=== PATIENT | female | born 2000 | race Caucasian/White ===

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

== ENCOUNTER → 2020-10-13 11:50 | Outpatient (CLI) | payer BC, SELFPAY ==
[2020-10-13 13:34] LABS: Add Manual Diff / Slide Review NO; Basophils Absolute Auto 0 /uL (0-100); Basophils Percent Auto 0.6 % (0-2); Eosinophils Absolute Auto 0 /uL (0-450); Eosinophils Percent Auto 0.7 % (2-4); Hematocrit 40.7 % (36-46); Hemoglobin 13.9 g/dL (12.0-16.0); Lymphocytes Absolute Auto 2100 /uL (1100-4500); Lymphocytes Percent Auto 31.7 % (25-40); Mean Corpuscular HGB Conc 34.1 % (30-36); Mean Corpuscular Hemoglobin 30.5 PG (26-34); Mean Corpuscular Volume 89.3 fL (80-100); Monocytes Absolute Auto 800 /uL (0-900); Monocytes Percent Auto 12.3 % (3-14); Neutrophils Absolute Auto 3500 /uL (1500-7000); Neutrophils Percent Auto 54.7 % (50-75); Platelet Count 345 X10^3/uL (150-400); Red Blood Cell Count 4.56 X10^6/uL (4.0-5.2); Red Cell Distribution Width 12.5 % (11.6-14.8); White Blood Cell Count 6.5 X10^3/uL (4.5-11.0)
[2020-10-13 13:39] LABS: Alanine Aminotransferase 15 IU/L (<35); Albumin 4.9 g/dL (3.5-5.0); Albumin Globulin Ratio 1.4 (1.0-2.8); Alkaline Phosphatase 51 U/L (38-126); Aspartate Aminotransferase 26 IU/L (14-36); BUN Creatinine Ratio 16.9 (6-22); Blood Urea Nitrogen 11 mg/dL (7-17); C-Reactive Protein Quant < 0.5 mg/dL (<1.0); Calcium 10.5 mg/dL (8.4-10.2); Carbon Dioxide 23 mmol/L (22-32); Chloride 105 mmol/L (98-107); Estimated Glomerular Filt Rate > 60.0 mL/min (>60); Globulin 3.5 g/dL (1.7-4.1); Glucose 99 mg/dL (70-100); HEMOLYSIS < 15 (0-50); Lipase 119 U/L (23-300); Potassium 4.3 mmol/L (3.4-5.1); Sodium 139 mmol/L (137-145); Total Protein 8.4 g/dL (6.3-8.2)
[2020-10-13 14:03] LABS: Erythrocyte Sedimentation Rate 8 MM/HR (0-20)
[2020-10-14 20:30] LABS: Deamidated Gliadin Ab IgA 7 units (0-19); Deamidated Gliadin Ab IgG 2 units (0-19); Immunoglobulin A,Qn 177 mg/dL (87-352); t-Transglutaminase IgA <2 U/mL (0-3)
== END ==
PROVIDERS: PCP Family Medicine; Referring Provider Family Medicine; Visit Provider Family Medicine
DX: E80.4 Gilbert syndrome (principal); K58.9 Irritable bowel syndrome, unspecified; R10.9 Unspecified abdominal pain; R19.5 Other fecal abnormalities
CPT/HCPCS: 36415; 80053; 82784; 83516; 83690; 85025; 85651; 86140

== ENCOUNTER → 2020-10-15 09:15 | Outpatient (CLI) | payer BC, SELFPAY ==
[2020-10-17 16:49] LABS: Calprotectin, Stool 53 ug/g (0-120)
== END ==
PROVIDERS: PCP Family Medicine; Referring Provider Family Medicine; Visit Provider Family Medicine
DX: E80.4 Gilbert syndrome (principal); K58.9 Irritable bowel syndrome, unspecified; R10.9 Unspecified abdominal pain; R19.5 Other fecal abnormalities
CPT/HCPCS: 83993; 87177

== ENCOUNTER → 2021-07-02 10:29 | Outpatient (CLI) | payer BC, SELFPAY ==
--- NOTE | 2021-07-02 10:30 | DI.US.S_ITS ---
ULTRASOUND OF RIGHT BREAST AND AXILLA: 07/02/2021 CLINICAL: Palpable right breast lump. Comparison is made to exam dated: 01/11/2019 [facility]. Color flow and real-time ultrasound of the right breast axilla were performed. Reyes scale images of the real-time examination were reviewed. There is a 1.3 cm x 0.5 cm x 0.9 cm wider than tall oval mass in the right breast at 9 o'clock middle depth 6 cm from the nipple. This oval mass is hypoechoic. This correlates as an incidental finding within the larger area of more diffuse palpable concern that appears to be dense fibroglandular tissue. No significant abnormalities were seen sonographically in the right axilla. IMPRESSION: PROBABLY BENIGN The 1.3 cm x 0.5 cm x 0.9 cm wider than tall oval mass in the right breast resembles a fibroadenoma and is probably benign. This is an incidental finding as it correlates with a larger area of dense fibroglandular tissue that the patient is feeling. A follow-up right breast ultrasound in 6 months is recommended to demonstrate stability. Findings and recommendations were conveyed to the patient during today's evaluation. This exam was interpreted at Station ID: [id number]. Electronically Signed By: Bishop Lopez M.D. at/:07/02/2021 12:31:59 letter sent: Followup Recommended Ultrasound BI-RADS: 3 Probably benign
== END ==
PROVIDERS: PCP Family Medicine; Referring Provider Family Medicine; Visit Provider Family Medicine
DX: N63.15 Unspecified lump in the right breast, overlapping quadrants (principal); R92.8 Other abnormal and inconclusive findings on diagnostic imaging of breast
CPT/HCPCS: 76642

== ENCOUNTER 2022-01-10 10:58 | Emergency (ER) | payer BC, SELFPAY ==
[2022-01-10 11:02] VITALS: BP 118/84; PULSE 95; RESP 15; TEMP 36.1; O2SAT 99; BMI 23.0
[2022-01-10] MEDS: ACETAMINOPHEN 325 MG TABLET 650 MG PO (14:04)
[2022-01-10] MEDS: LIDOCAINE/PRILOCAINE 5 GM TOP (14:04)
[2022-01-10] MEDS: DEXAMETHASONE 10 MG/ML VIAL PO (14:04)
[2022-01-10] MEDS: KETOROLAC 30 MG/ML VIAL 15 MG IM (14:04)
[2022-01-10] MEDS: TET,DIPH,PERTUSS(ACELL),VAC/PF 0.5 ML SYRINGE IM (14:05)
[2022-01-10] MEDS: hydrOXYzine pamoate 25 MG CAPSULE PO (14:05)
--- NOTE | 2022-01-10 14:06 | ED_ITS ---
HPI - Neck Pain/Injury <RAFAEL Hopper - Last Filed: 01/10/22 19:49> General Chief Complaint: Neck Pain/Injury Stated Complaint: really swollen lymph node on L side, causing pain Time Seen by Provider: 01/10/22 13:26 Mode of arrival: Ambulatory History of Present Illness HPI Narrative: This is a 21-year-old female without significant medical history who presents to the emergency department with onset tenderness to the right lateral neck and right axilla this morning. Patient endorses having slight congestion, a sore throat, states that she has not had swollen lymph nodes like this in the past. States that she is been working hard for the last few days at work, her car is having trouble, and now she does not feel well in her neck is painful at the surface with a bump. She thinks it is a swollen lymph node, there is no open wound, she denies any IV drug use, recent illness, states that the last 2 days she is had some congestion and stress in her life but nothing out of the ordinary. Related Data Home Medications Medication Instructions Recorded Confirmed etonogestrel 68 mg subdermal subdermal 01/19/19 07/26/21 implant (Nexplanon) Previous Rx's Medication Instructions Recorded ondansetron HCl 4 mg tablet 4 mg PO Q8H PRN nausea and 12/04/20 (Zofran) vomiting #30 tabs doxycycline hyclate 100 mg capsule 100 mg PO DAILY #60 caps 07/26/21 sertraline 100 mg tablet (Zoloft) 100 mg PO DAILY #90 tabs 07/26/21 adapalene 0.1 % topical gel 1 applic topical BEDTIME #45 grams 08/16/21 (Effaclar Adapalene) hydroxyzine HCl 25 mg tablet 25 mg PO BID PRN runny 01/10/22 nose/anxiety/nausea #14 tabs Allergies Allergy/AdvReac Type Severity Reaction Status Date / Time No Known Drug Allergies Allergy Verified 01/10/22 11:02 Review of Systems <RAFAEL Hopper - Last Filed: 01/10/22 19:49> Review of Systems Narrative: Review of systems is negative for acute abnormalities unless otherwise noted in HPI Patient History <RAFAEL Hopper - Last Filed: 01/10/22 19:49> Medical History Acne [place] syndrome Muscle strain Seasonal allergies Social History Smoking Status: Never smoker second hand exposure: No alcohol intake: current (2 alcohol seltzers per week ) substance use type: marijuana (every other night for pain and headaches ) Smoking Status: Never smoker alcohol intake frequency: 0-2 drinks per day Substance Use Type: marijuana Exam <RAFAEL Hopper - Last Filed: 01/10/22 19:49> Narrative Exam Narrative: Reviewed vitals signs and nursing notes. General: cooperative, comfortable, in no acute distress, well groomed, tearful and crying, states for emotional reasons HEENT: symmetrical facial expressions, moist mucous membranes, right anterior cervical lymphadenopathy, less than 2 cm, 1 node, patient is tearful with wet tears, voices clear, no difficulty swallowing MSK: moves all extremities, neurovascularly intact, no weakness, normal tone, normal wrap neck flexion extension, turning to the left is limited only due to pain, patient can turn her neck to the right without difficulty Skin: brisk capillary refill, without pallor or erythema Neuro: normal speech and cognition, A&O x3, ambulatory, clear speech Psych: mental status is grossly normal, congruent mood, normal affect, pleasant and cooperative Initial Vital Signs Initial Vital Signs: Vital Signs Temperature 96.9 F L 01/10/22 11:02 Pulse Rate 95 H 01/10/22 11:02 Respiratory Rate 15 01/10/22 11:02 Blood Pressure 118/84 01/10/22 11:02 Pulse Oximetry 99 01/10/22 11:02 Oxygen Delivery Method 01/10/22 11:02 <Calli Villatoro DO - Last Filed: 01/14/22 08:26> Initial Vital Signs Initial Vital Signs: Vital Signs Temperature 96.9 F L 01/10/22 11:02 Pulse Rate 95 H 01/10/22 11:02 Respiratory Rate 15 01/10/22 11:02 Blood Pressure 118/84 01/10/22 11:02 Pulse Oximetry 99 01/10/22 11:02 Oxygen Delivery Method 01/10/22 11:02 Course <RAFAEL Hopper - Last Filed: 01/10/22 19:49> Orders Ordered: Discontinued Medications Acetaminophen (Acetaminophen 325 Mg Tablet) 650 mg PO NOW ONE Stop: 01/10/22 13:34 Last Admin: 01/10/22 14:04 Dose: 650 mg Documented By: ANTIONETTE Dexamethasone (Dexamethasone 10 Mg/Ml Vial) 10 mg PO NOW ONE Stop: 01/10/22 13:48 Last Admin: 01/10/22 14:04 Dose: 10 mg Documented By: ANTIONETTE Diphtheria/Tetanus/Acell Pertussis (Tet,Diph,Pertuss(Acell),Vac/Pf 0.5 Ml Syringe) 0.5 ml IM .ONCE ONE Stop: 01/10/22 13:34 Last Admin: 01/10/22 14:05 Dose: 0.5 ml Documented By: ANTIONETTE Hydroxyzine Pamoate (Hydroxyzine Pamoate 25 Mg Capsule) 25 mg PO NOW ONE Stop: 01/10/22 13:34 Last Admin: 01/10/22 14:05 Dose: 25 mg Documented By: ANTIONETTE Ketorolac Tromethamine (Ketorolac 30 Mg/Ml Vial) 15 mg IM NOW ONE Stop: 01/10/22 13:34 Last Admin: 01/10/22 14:04 Dose: 15 mg Documented By: ANTIONETTE Lidocaine/Prilocaine (Lidocaine/Prilocaine 5 Gm) 5 gm TOP NOW ONE Stop: 01/10/22 13:36 Last Admin: 01/10/22 14:04 Dose: 5 gm Documented By: ANTIONETTE Vital Signs Vital signs: Vital Signs - 8 hr 01/10/22 14:48 Pulse Rate 73 Blood Pressure 113/81 Pulse Oximetry 99 Oxygen Delivery Method Room Air <Calli Villatoro DO - Last Filed: 01/14/22 08:26> Orders Ordered: Discontinued Medications Acetaminophen (Acetaminophen 325 Mg Tablet) 650 mg PO NOW ONE Stop: 01/10/22 13:34 Last Admin: 01/10/22 14:04 Dose: 650 mg Documented By: ANTIONETTE Dexamethasone (Dexamethasone 10 Mg/Ml Vial) 10 mg PO NOW ONE Stop: 01/10/22 13:48 Last Admin: 01/10/22 14:04 Dose: 10 mg Documented By: ANTIONETTE Diphtheria/Tetanus/Acell Pertussis (Tet,Diph,Pertuss(Acell),Vac/Pf 0.5 Ml Syringe) 0.5 ml IM .ONCE ONE Stop: 01/10/22 13:34 Last Admin: 01/10/22 14:05 Dose: 0.5 ml Documented By: ANTIONETTE Hydroxyzine Pamoate (Hydroxyzine Pamoate 25 Mg Capsule) 25 mg PO NOW ONE Stop: 01/10/22 13:34 Last Admin: 01/10/22 14:05 Dose: 25 mg Documented By: ANTIONETTE Ketorolac Tromethamine (Ketorolac 30 Mg/Ml Vial) 15 mg IM NOW ONE Stop: 01/10/22 13:34 Last Admin: 01/10/22 14:04 Dose: 15 mg Documented By: ANTIONETTE Lidocaine/Prilocaine (Lidocaine/Prilocaine 5 Gm) 5 gm TOP NOW ONE Stop: 01/10/22 13:36 Last Admin: 01/10/22 14:04 Dose: 5 gm Documented By: ANTIONETTE Vital Signs Vital signs: Vital Signs - 8 hr 01/10/22 14:48 Pulse Rate 73 Blood Pressure 113/81 Pulse Oximetry 99 Oxygen Delivery Method Room Air MDM - Neck Pain/Injury <RAFAEL Hopper - Last Filed: 01/10/22 19:49> Lab Data Labs: Lab Results 01/10/22 Range/Units 14:10 SARS-CoV-2 (PCR) Negative (Negative) Influenza A (RT-PCR) Flu a negative (NEGATIVE) Influenza B (RT-PCR) Flu b negative (NEGATIVE) RSV (PCR) Negative (Negative) MDM Narrative Medical decision making narrative: This is a 21-year-old female presents to the emergency department with anterior cervical lymphadenopathy which started this morning as well as right axillary lymphadenopathy with a rhinorrhea and a sore throat that started today. Patient was tearful in the emergency department, states she felt like people forgot about her, her car broke down and she is going through stress and then she is having pain on her neck from this swollen lymph node. On exam, it is a firm non mobile node less than 2 cm on her right lateral neck without fluctuance or other lymphadenopathy. No difficulty swallowing or with muffled voice. She has lymphadenopathy to the right axilla as well, those noted less than 1 cm and she has 2 of them. Encouraged hydration, Tylenol, Motrin, cetirizine as needed for congestion and/or anxiety. She was given a work note to use as needed for the next 2 days, her RSV, flu and COVID panel are pending. Update, respiratory pane l was negative for COVID, influenza and RSV. Patient is appropriate and amenable to discharge home. Vital signs are stable on repeat examination is unremarkable. Patient has been informed of results. Patient has been given strict return to ER precautions for any new or worsening symptoms. Patient understands to follow up closely with outpatient providers as instructed. Patient understands plan and agrees to discharge home. All questions and concerns answered at this time. <Calli Villatoro, DO - Last Filed: 01/14/22 08:26> Lab Data Labs: Lab Results 01/10/22 Range/Units 14:10 SARS-CoV-2 (PCR) Negative (Negative) Influenza A (RT-PCR) Flu a negative (NEGATIVE) Influenza B (RT-PCR) Flu b negative (NEGATIVE) RSV (PCR) Negative (Negative) Discharge Plan Departure Patient Disposition: Home Clinical Impression: Lymphadenopathy, cervical, Lymphadenopathy, axillary, Upper respiratory infection, viral Instructions: DI for Viral Upper Respiratory Infection -- Adult, DI for Lymphadenopathy Activity Restrictions/Additional Instructions: *You have been diagnosed with swollen lymph nodes, this is most likely a response to stress and possibly an upper respiratory infection. I will call you if your testing was positive for flu, RSV or COVID. I will give you a work note for 2 days to see if you are better by then. It is okay to return sooner. Please stay hydrated and sleep well, takes Zyrtec if you have a runny nose, ibuprofen every 8 hours starting tomorrow, Tylenol every 6 hours as needed in addition to that for pain and/or fever. You can use topical lidocaine cream if this is helpful, please do not apply the whole tube at once. I hope that you feel better soon, if this is persistent and ongoing, please see Dr. Sanon for another evaluation. Use warm compresses for your neck, this can help tonight and help you sleep. I do not know that a muscle relaxer will be as helpful since this is in your lymph tissue when not muscle so I held off on that 1. I hope you feel better soon. *What to do: *Please continue to take your regular medications as directed. [x ] New medication prescriptions sent to your pharmacy: [ [facility]] [ ] New medication written as a paper prescription [ ] No new medications given *Please follow up with your primary care provider in 2-3 days, call for an appointment. Let them know you were seen in the Emergency Department and that we asked that you be seen for follow-up. We will electronically transmit a record of today's note if your PCP is in our system *If you do not have a primary care provider please contact [phone] to establish care with one of the [facility] primary care providers. *Return to Emergency Department if you should have any new, worsening, or concerning symptoms, such as [fever greater than 101F, chills, worsening pain, persistent vomiting or other bothersome symptoms]. Prescriptions: New hydroxyzine HCl 25 mg tablet 25 mg PO BID PRN (Reason: runny nose/anxiety/nausea) Qty: 14 0RF No Action adapalene [Effaclar Adapalene] 0.1 % gel 1 applic topical BEDTIME Qty: 45 0RF ondansetron HCl [Zofran] 4 mg tablet 4 mg PO Q8H PRN (Reason: nausea and vomiting) Qty: 30 0RF Nexplanon 68 mg implant subdermal sertraline [Zoloft] 100 mg tablet 100 mg PO DAILY Qty: 90 2RF doxycycline hyclate 100 mg capsule 100 mg PO DAILY Qty: 60 0RF Referrals: Valente Sanon MD [Primary Care Provider] - Stand Alone Forms: Work Release Note Visit Report Forms: Patient Portal/API <Calli Villatoro DO - Last Filed: 01/14/22 08:26> Cosign ED Attending Sara[place] Attestation: I was immediately available in the department for consultation. Documentation has been reviewed.
[2022-01-10 14:48] VITALS: BP 113/81; PULSE 73; O2SAT 99
[2022-01-10 15:52] LABS: Influenza A - CEPHEID Flu A NEGATIVE (NEGATIVE); Influenza B - CEPHEID Flu B NEGATIVE (NEGATIVE); Respiratory Syncytial Virus Negative (Negative)
[2022-01-10 15:58] LABS: COVID-19 CEPHEID 4-PLEX PCR Negative (Negative)
== END 2022-01-10 14:52 | disposition home or self-care (01) ==
PROVIDERS: Emergency Provider Nurse Practitioner Critical Care Medicine; PCP Family Medicine
DX: R59.0 Localized enlarged lymph nodes (principal); J06.9 Acute upper respiratory infection, unspecified; Z23 Encounter for immunization
CPT/HCPCS: 0241U; 90471; 96372; 99283; 90715; J1100; J1885